=== PATIENT | female | born 1935 | race Caucasian/White ===

== ENCOUNTER 2021-04-07 10:13 | Emergency (ER) | payer MEDICARE, OTHER ==
[2021-04-07] MEDS ORDERED: Sodium Chloride 0.9% 10 ML Syringe FLUSH PRN (10:49)
[2021-04-07] MEDS ORDERED: Ondansetron 4 MG/2 ML SDV IVPUSH ONE (10:49)
--- NOTE | 2021-04-07 11:33 | CR ---
Chest: Portable view of the chest was obtained. Comparison: No prior chest imaging is available. Heart size is prominent but is accentuated from portable technique. Possible density is seen within the left lung base which may represent thick area of atelectasis. Lungs otherwise are clear. Old left-sided rib fractures are noted which appear healed. Slight scoliosis noted within the spine. Bony structures are osteopenic. Impression: 1. Thick density within the left base possibly due to thick area of atelectasis. Chest CT could be obtained to confirm this finding if clinically needed. 2. Other findings as described above. Nothing acute is otherwise seen. Diagnostic code #3
--- NOTE | 2021-04-07 12:18 | EDM.PDOC ---
ED HPI GENERAL MEDICAL PROBLEM - General Chief Complaint: Cardiovascular Problem Stated Complaint: BP LOW 180/86 Time Seen by Provider: 04/07/21 10:31 Source of Information: Reports: Patient History Limitations: Reports: No Limitations - History of Present Illness INITIAL COMMENTS - FREE TEXT/NARRATIVE: 85-year-old female presents the emergency department with complaints of "not feeling well". She states she has been treated for H. pylori infection and is on day 3 of her antibiotics. She states that this morning she took her regular blood pressure meds and waited approximately 30 minutes and then took her antibiotics. She states that she started to feel slightly nauseated and ate one half of a banana after taking her antibiotics and then elected to take her blood pressure and noted it was 180 systolic. She states at that time she also had a headache associated with the high blood pressure. Patient did call her primary care provider's office and was instructed to come to the emergency department. Patient does have a history of hypertension. She denies history of RI or stroke. Her primary care provider is Dr. Vega. - Related Data Allergies Allergy/AdvReac Type Severity Reaction Status Date / Time No Known Allergies Allergy Verified 04/07/21 10:43 Home Meds: Home Meds Amoxicillin 500 mg PO 04/07/21 [History] Aspirin [Aspirin EC] 04/07/21 [History] Cholecalciferol (Vitamin D3) [Vitamin D] 04/07/21 [History] Clarithromycin 500 mg PO 04/07/21 [History] Levothyroxine 75 mcg PO ACBREAKFAST 04/07/21 [History] Losartan [Cozaar] 04/07/21 [History] Magnesium 04/07/21 [History] Metoclopramide [Reglan] 5 mg PO Q6H PRN #20 tab 04/07/21 [Rx] Metoprolol Succinate [Toprol XL] 04/07/21 [History] Multivit with Minerals/Lutein [A Thru Z Advanced Formula Tab] 04/07/21 [History] Pantoprazole [ProTONIX] 40 mg PO DAILY 04/07/21 [History] Potassium Gluconate [Potassium] 04/07/21 [History] Rosuvastatin [Crestor] 04/07/21 [History] Sucralfate 04/07/21 [History] amLODIPine [Norvasc] 04/07/21 [History] metFORMIN [Glucophage] 04/07/21 [History] Past Medical History Cardiovascular History: Reports: High Cholesterol, Hypertension Social & Family History - Tobacco Use Tobacco Use Status *Q: Unknown Ever Used Tobacco ED ROS GENERAL - Review of Systems Review Of Systems: Comprehensive ROS is negative, except as noted in HPI. ED EXAM, GENERAL - Physical Exam Exam: See Below Exam Limited By: No Limitations General Appearance: Alert, WD/WN, No Apparent Distress Ears: Normal External Exam, Hearing Grossly Normal Nose: Normal Inspection Throat/Mouth: Normal Inspection, Normal Lips, Normal Voice, No Airway Compromise Head: Atraumatic, Normocephalic Neck: Normal Inspection, Supple Respiratory/Chest: No Respiratory Distress, Lungs Clear, Normal Breath Sounds, No Accessory Muscle Use, Chest Non-Tender Cardiovascular: Normal Peripheral Pulses, Regular Rate, Rhythm, No Edema, No Murmur Peripheral Pulses: 2+: Radial (L), Radial (R) GI/Abdominal: Normal Bowel Sounds, Soft, Non-Tender, No Distention (Female) Exam: Deferred Rectal (Female) Exam: Deferred Back Exam: Normal Inspection Extremities: Normal Inspection, Normal Range of Motion, Non-Tender, No Pedal Edema, Normal Capillary Refill Neurological: Alert, Oriented, Normal Cognition Psychiatric: Normal Affect, Normal Mood Skin Exam: Warm, Dry, Intact, Normal Color, No Rash Lymphatic: No Adenopathy Course - Vital Signs Text/Narrative:: As stated above, patient presents with nausea, headache and hypertensive episode after taking her antibiotics to treat H. pylori. She states she is on day 3 of her medication course. Physical exam is essentially unremarkable. And she is hemodynamically stable at the time of my exam. Will obtain a full cardiac work- up to include labs, chest x-ray and an EKG. We will also medicate the patient with some Zofran. Suspect patient's nausea is due to her clarithromycin that she has been taking. Last Recorded V/S: Last Vital Signs Temp 98.4 F 04/07/21 10:28 Pulse 80 04/07/21 10:28 Resp 18 04/07/21 10:28 BP 164/83 H 04/07/21 10:28 Pulse Ox 100 04/07/21 10:28 - Orders/Labs/Meds Orders: Active Orders 24 hr Category Date Time Status Sodium Chloride 0.9% [Saline Flush] Med 04/07/21 10:49 Active 10 ml FLUSH ASDIRECTED PRN Saline Lock Insert [OM.PC] Stat Oth 04/07/21 10:49 Ordered Medication Orders Sodium Chloride (Sodium Chloride 0.9% 10 Ml Syringe) 10 ml FLUSH ASDIRECTED PRN PRN Reason: Keep Vein Open Last Admin: 04/07/21 11:10 Dose: 10 ml Documented by: IVIS Labs: Laboratory Tests 04/07/21 04/07/21 Range/Units 11:14 11:14 WBC 5.75 (3.98-10.04) K/mm3 RBC 4.01 (3.98-5.22) M/mm3 Hgb 10.8 L (11.2-15.7) gm/dl Hct 34.6 (34.1-44.9) % MCV 86.3 (79.4-94.8) fl MCH 26.9 (25.6-32.2) pg MCHC 31.2 L (32.2-35.5) g/dl RDW Std Deviation 48.7 H (36.4-46.3) fL Plt Count 427 H (182-369) K/mm3 MPV 9.4 (9.4-12.3) fl Neut % (Auto) 57.2 (34.0-71.1) % Lymph % (Auto) 30.3 (19.3-51.7) % Mcintosh % (Auto) 9.0 (4.7-12.5) % Eos % (Auto) 2.3 (0.7-5.8) Baso % (Auto) 1.0 (0.1-1.2) % Neut # (Auto) 3.29 (1.56-6.13) K/mm3 Lymph # (Auto) 1.74 (1.18-3.74) K/mm3 Mcintosh # (Auto) 0.52 H (0.24-0.36) K/mm3 Eos # (Auto) 0.13 (0.04-0.36) K/mm3 Baso # (Auto) 0.06 (0.01-0.08) K/mm3 Sodium 144 (136-145) mEq/L Potassium 4.5 (3.5-5.1) mEq/L Chloride 109 H (98-107) mEq/L Carbon Dioxide 21 (21-32) mEq/L Anion Gap 18.5 H (5-15) BUN 14 (7-18) mg/dL Creatinine 1.1 H (0.55-1.02) mg/dL Est Cr Clr Drug Dosing 27.35 mL/min Estimated GFR (MDRD) 47 (>60) mL/min BUN/Creatinine Ratio 12.7 L (14-18) Glucose 92 (70-99) mg/dL Calcium 8.0 L (8.5-10.1) mg/dL Magnesium 1.4 L (1.8-2.4) mg/dL Total Bilirubin 0.5 (0.2-1.0) mg/dL AST 23 (15-37) U/L ALT 20 (14-59) U/L Alkaline Phosphatase 57 (46-116) U/L Troponin I < 0.017 (0.00-0.056) ng/mL C-Reactive Protein <0.2 (<1.0) mg/dL Total Protein 6.0 L (6.4-8.2) g/dl Albumin 3.0 L (3.4-5.0) g/dl Globulin 3.0 gm/dL Albumin/Globulin Ratio 1.0 (1-2) Meds: Medications Generic Name Dose Route Start Last Admin Trade Name Charles PRN Reason Stop Dose Admin Sodium Chloride 10 ml 04/07/21 10:49 04/07/21 11:10 Sodium Chloride 0.9% 10 Ml Syringe FLUSH 10 ml ASDIRECTED PRN Administration Keep Vein Open Discontinued Medications Generic Name Dose Route Start Last Admin Trade Name Charles PRN Reason Stop Dose Admin Ondansetron HCl 4 mg 04/07/21 10:49 04/07/21 11:10 Ondansetron 4 Mg/2 Ml Sdv IVPUSH 04/07/21 10:50 4 mg ONETIME ONE Administration - Re-Assessments/Exams Free Text/Narrative Re-Assessment/Exam: 04/07/21 12:28 Hematology reveals a WBC of 5.75, hemoglobin 10.8, hematocrit 34.6, platelet count 427 Chemistry reveals a sodium of 144, potassium 4.5, chloride 109, carbon dioxide 21, anion gap 18.5, BUN 14, creatinine 1.1, glucose 92, calcium 8.0, magnesium 1.4, troponin less than 0.017, C-reactive protein 0.2 Patient states that she is feeling much better after receiving the Zofran. She will be discharged to home with a prescription for Zofran. Departure - Departure Time of Disposition: 12:36 Disposition: Home, Self-Care 01 Condition: Good Clinical Impression: Nausea Prescriptions: Metoclopramide [Reglan] 5 mg PO Q6H PRN #20 tab PRN Reason: Nausea Instructions: Nausea, Adult, [id number] Referrals: Talib Bales MD [Primary Care Provider] - Josseline Atwood NP [Nurse Practitioner] - Forms: ED Department Discharge Additional Instructions: You were seen in the emergency department today with complaints of nausea and high blood pressure and not feeling well. Full cardiac work-up was completed to include chest x-ray, EKG and lab studies. EKG and chest x-ray were essentially unremarkable. Lab studies did show that you are slightly dehydrated so recommend drinking more fluids throughout the day. Suspect the cause of your nausea is likely due to the antibiotic clarithromycin that you are taking to treat your H. pylori. Recommend taking all of your morning medications then waiting 1 hour. Take Reglan 1 tab swallowed whole and wait approximately 30 minutes then take your antibiotics with a light snack. Recommend that you follow-up with Josseline Atwood in approximately 1 week for reevaluation. Should your condition worsen or change, do not hesitate returning to the emergency department. Sepsis Event Note (ED) - Evaluation Sepsis Screening Result: No Definite Risk - Focused Exam Vital Signs: Vital Signs Temp Pulse Resp BP Pulse Ox 04/07/21 10:28 98.4 F 80 18 164/83 H 100 - My Orders Last 24 Hours: My Active Orders 04/07/21 10:49 Sodium Chloride 0.9% [Saline Flush] 10 ml FLUSH ASDIRECTED PRN Saline Lock Insert [OM.PC] Stat - Assessment/Plan Last 24 Hours: My Active Orders 04/07/21 10:49 Sodium Chloride 0.9% [Saline Flush] 10 ml FLUSH ASDIRECTED PRN Saline Lock Insert [OM.PC] Stat
--- NOTE | 2021-04-07 12:45 | PCM.EKG ---
#1 Interpretation EKG Date: 04/07/21 Time: 10:31 Rhythm: NSR Rate (Beats/Min): 75 [place]: Normal P-Wave: Present QRS: Normal ST-T: Normal QT: Normal EKG Interpretation Comments: Dr. Candelario interpretation: Sinus rhythm at 75 bpm; borderline left axis deviation; anterior infarct, age indeterminate
== END 2021-04-07 13:20 | disposition home or self-care (01) ==
LOC: JD.ED 10:13
DX: R11.0 Nausea (principal); R51.9 Headache, unspecified; E78.00 Pure hypercholesterolemia, unspecified; I10 Essential (primary) hypertension; Z79.82 Long term (current) use of aspirin; Z79.899 Other long term (current) drug therapy
CPT/HCPCS: 36415; 71045; 80053; 83735; 84484; 85025; 86140; 93005; 96374; 99284; J2405; 93010; 99285

== ENCOUNTER 2021-04-09 03:22 | Emergency (ER) | payer MEDICARE, OTHER ==
--- NOTE | 2021-04-09 04:22 | EDM.PDOC ---
ED HPI GENERAL MEDICAL PROBLEM - General Chief Complaint: Abdominal Pain Stated Complaint: STOMACH PAIN/BACK PAIN Time Seen by Provider: 04/09/21 03:28 Source of Information: Reports: Patient, Family (Daughter), Old Records (ED visit 04/07/2021) History Limitations: Reports: No Limitations - History of Present Illness INITIAL COMMENTS - FREE TEXT/NARRATIVE: Mrs. Adams is a very pleasant 85-year-old woman who now presents the ED stating that she has been experiencing needlelike pain in both of her shoulders, with a dry mouth, lightheadedness, and a "gut ache" ever since she started taking amoxicillin, clarithromycin, pantoprazole, and sucralfate, for treatment of H. pylori that was diagnosed by a stool test last week. She was seen in this ED 2 days ago, 04/07/2021, for similar symptoms. A work-up was unremarkable, and she felt much better after receiving IV Zofran. She was discharged home with a prescription for oral Zofran. No recent vomiting or daniel rrhea. The patient states that she has an appointment for consultation for EGD and colonoscopy on 04/28/2020. She has never previously undergone either. At triage, the patient's initial BP was found to be elevated at 171/90, with slight tachycardia of 102 bpm. She is afebrile, saturating 97% on room air. She appears to be somewhat anxious, although in no acute distress. The patient denies having a recent fever, chills, sore throat, ear pain, nasal or sinus congestion, cough, dyspnea, chest pain, palpitations, vomiting, constipation, diarrhea, urinary symptoms, recent weight gain or weight loss, recent bloody bowel movements or black bowel movements, recent joint aches, headaches, or rashes. The patient's PCP is Dr. Talib Vega. The Surgeon she was referred to is Dr. Ashutosh Guevara. She has received 2 COVID vaccinations plus to booster, as well as an influenza vaccination this season. Bilateral Shoulder Pain Score (Numeric/FACES): 6 Upper Abdomen Pain Score (Numeric/FACES): 6 - Related Data Allergies Allergy/AdvReac Type Severity Reaction Status Date / Time No Known Allergies Allergy Verified 04/09/21 03:35 Home Meds: Home Meds Amoxicillin 500 mg PO BID 04/07/21 [History] Aspirin [Aspirin EC] 81 mg PO DAILY 04/07/21 [History] Cholecalciferol (Vitamin D3) [Vitamin D] 5,000 unit PO DAILY 04/07/21 [History] Clarithromycin 500 mg PO BID 04/07/21 [History] Levothyroxine 75 mcg PO ACBREAKFAST 04/07/21 [History] Losartan [Cozaar] 50 mg PO DAILY 04/07/21 [History] Magnesium 200 mg PO DAILY 04/07/21 [History] Metoclopramide [Reglan] 5 mg PO Q6H PRN #20 tab 04/07/21 [Rx] Metoprolol Succinate [Toprol XL] 25 mg PO DAILY 04/07/21 [History] Multivit with Minerals/Lutein [A Thru Z Advanced Formula Tab] 1 tab PO DAILY 04/07/21 [History] Pantoprazole [ProTONIX] 40 mg PO DAILY 04/07/21 [History] Potassium Gluconate [Potassium] 99 mg PO DAILY 04/07/21 [History] Rosuvastatin [Crestor] 20 mg PO DAILY 04/07/21 [History] Sucralfate 1 gm PO QID 04/07/21 [History] amLODIPine [Norvasc] 2.5 mg PO DAILY 04/07/21 [History] metFORMIN [Glucophage] 500 mg PO DAILY 04/07/21 [History] Past Medical History Cardiovascular History: Reports: High Cholesterol, Hypertension Gastrointestinal History: Reports: GERD Endocrine/Metabolic History: Reports: Diabetes, Type II - Infectious Disease History Infectious Disease History: Reports: Helicobacter Pylori - Past Surgical History HEENT Surgical History: Reports: Cataract Surgery (bilateral), Oral Surgery (dental extractions) Female Surgical History: Reports: Hysterectomy (partial) Social & Family History - Tobacco Use Tobacco Use Status *Q: Former Tobacco User Years of Tobacco use: 24 Packs/Tins Daily: 1 Month/Year Tobacco Last Used: Quit around 1979 Tobacco Use Comment: Started smoking 1955 - Caffeine Use Caffeine Use: Reports: None - Alcohol Use Alcohol Use History: No - Recreational Drug Use Recreational Drug Use: No - Living Situation & Occupation Living situation: Reports: , Alone Occupation: Retired ED ROS GENERAL - Review of Systems Review Of Systems: Comprehensive ROS is negative, except as noted in HPI. ED EXAM, GI/ABD - Physical Exam Exam: See Below Exam Limited By: No Limitations General Appearance: Alert, No Apparent Distress, Thin Eyes: Bilateral: Normal Appearance, EOMI Ears: Normal External Exam, Hearing Grossly Normal Nose: Normal Inspection Throat/Mouth: Normal Inspection, Normal Lips, Normal Voice, No Airway Compromise Head: Atraumatic, Normocephalic Neck: Normal Inspection, Full Range of Motion Respiratory/Chest: No Respiratory Distress, Lungs Clear, Normal Breath Sounds, No Accessory Muscle Use Cardiovascular: Normal Peripheral Pulses, Regular Rate, Rhythm, No Edema, No Gallop, No JVD, No Murmur, No Rub GI/Abdominal Exam: Normal Bowel Sounds, Soft, Non-Tender (including the epigastrium), No Organomegaly, No Distention, No Abnormal Bruit, No Mass Back Exam: Normal Inspection, Full Range of Motion, NT Extremities: Normal Inspection, Normal Range of Motion, No Pedal Edema, Normal Capillary Refill Neurological: Alert, Oriented, Normal Cognition, No Motor/Sensory Deficits Psychiatric: Anxious Skin Exam: Warm, Dry, Intact, Normal Color, No Rash Course - Vital Signs Last Recorded V/S: Last Vital Signs Temp 36.6 C 04/09/21 03:39 Pulse 102 H 04/09/21 03:39 Resp 18 04/09/21 03:39 BP 171/90 H 04/09/21 03:39 Pulse Ox 97 04/09/21 03:39 - Re-Assessments/Exams Free Text/Narrative Re-Assessment/Exam: 04/09/21 04:17 The patient appears to be suffering from symptoms related to the clarithromycin that she is currently taking after testing positive for H. pylori on a stool test. She is currently scheduled for a consultation for an EGD and colonoscopy with Dr. Guevara on 04/28/2020. At this time, I am recommending that she discontinue both the clarithromycin and amoxicillin, but continue the pantoprazole and sucralfate. I would like her to contact the office of Dr. Guevara in the morning to see if she can meet with him earlier than 04/28/2020. The patient is aware that Dr. Guevara may very well decide that she needs to be on the antibiotics, anyway, in which case she would have to start over. Departure - Departure Time of Disposition: 04:21 Disposition: Home, Self-Care 01 Condition: Good Clinical Impression: Adverse effect of clarithromycin - Discharge Information *PRESCRIPTION DRUG MONITORING PROGRAM REVIEWED*: Not Applicable *COPY OF PRESCRIPTION DRUG MONITORING REPORT IN PATIENT ALLYN: Not Applicable Instructions: Abdominal Pain, Adult, [id number] Referrals: Talib Bales MD [Physician] - Ashutosh Guevara MD [Physician] - Forms: ED Department Discharge Additional Instructions: You were seen in the emergency room for a needlelike pain in both of your shoulders, and dry mouth, lightheadedness, and "gut ache" associated with clarithromycin that you were prescribed, along with amoxicillin, for treatment of H. pylori. As discussed, we are recommending that you discontinue both the clarithromycin and amoxicillin at this time, however, you are to continue to take the pantoprazole and sucralfate that you were also prescribed. We recommend that you contact the office of the surgeon Dr. Ashutosh Guevara in the morning, to see if you can move your consultation appointment earlier than 04/28/2020. If any other problems, please do not hesitate to return to the ER. Sepsis Event Note (ED) - Evaluation Sepsis Screening Result: No Definite Risk - Focused Exam Vital Signs: Vital Signs Temp Pulse Resp BP Pulse Ox 04/09/21 03:39 36.6 C 102 H 18 171/90 H 97
== END 2021-04-09 04:33 | disposition home or self-care (01) ==
LOC: JD.ED 03:22
DX: R42 Dizziness and giddiness (principal); T36.3X5A Adverse effect of macrolides, initial encounter; Z79.82 Long term (current) use of aspirin; Z79.84 Long term (current) use of oral hypoglycemic drugs; Z79.899 Other long term (current) drug therapy; Z87.891 Personal history of nicotine dependence
CPT/HCPCS: 99283

== ENCOUNTER 2021-04-20 03:53 | Emergency (ER) | payer MEDICARE, OTHER ==
[2021-04-20] MEDS ORDERED: Ondansetron 4 MG/2 ML SDV IVPUSH ONE (04:18)
[2021-04-20] MEDS ORDERED: Sodium Chloride 0.9% 10 ML Syringe FLUSH PRN (04:18)
[2021-04-20] MEDS ORDERED: Sodium Chloride 0.9% 1,000 ML IV SCH (04:30)
[2021-04-20] MEDS ORDERED: Pantoprazole 40 MG Vial IVPUSH ONE (05:44)
[2021-04-20] MEDS ORDERED: Magnesium Sulfate/Water 2 GM in Premix Bag 1 BAG IV ONE (05:44)
--- NOTE | 2021-04-20 05:46 | EDM.PDOC ---
ED HPI GENERAL MEDICAL PROBLEM - General Chief Complaint: Gastrointestinal Problem Stated Complaint: DIARHEA/BLOOD IN STOOLS Time Seen by Provider: 04/20/21 05:46 Source of Information: Reports: Patient History Limitations: Reports: No Limitations - History of Present Illness INITIAL COMMENTS - FREE TEXT/NARRATIVE: Patient is an 85-year-old female with no significant past medical history. Patient does have recent diagnosis of H. pylori. Patient is here with a chief complaint of diarrhea, feeling weak and blood in her stools. Patient states the diarrhea has been intermittent for the last 3 weeks. She reports recurrence of the diarrhea overnight. She did not have any associated vomiting. She does report some blood in her stool which has been present previously. She states she feels extremely weak and like she has no energy. She reports mid abdominal cramping without radiation. No focality of her abdominal discomfort. She was previously told that this was caused by antibiotics being to treat her H. pylori infection. She has subsequently stopped her antibiotics. However, her diarrhea seems to have returned. She is scheduled see surgery on Monday to have further evaluation and endoscopies performed. Bilateral Shoulder Pain Score (Numeric/FACES): 3 - Related Data Allergies Allergy/AdvReac Type Severity Reaction Status Date / Time No Known Allergies Allergy Verified 04/09/21 03:35 Home Meds: Home Meds Amoxicillin 500 mg PO BID 04/07/21 [History] Aspirin [Aspirin EC] 81 mg PO DAILY 04/07/21 [History] Cholecalciferol (Vitamin D3) [Vitamin D] 5,000 unit PO DAILY 04/07/21 [History] Clarithromycin 500 mg PO BID 04/07/21 [History] Levothyroxine 75 mcg PO ACBREAKFAST 04/07/21 [History] Losartan [Cozaar] 50 mg PO DAILY 04/07/21 [History] Magnesium 200 mg PO DAILY 04/07/21 [History] Metoclopramide [Reglan] 5 mg PO Q6H PRN #20 tab 04/07/21 [Rx] Metoprolol Succinate [Toprol XL] 25 mg PO DAILY 04/07/21 [History] Multivit with Minerals/Lutein [A Thru Z Advanced Formula Tab] 1 tab PO DAILY 04/07/21 [History] Pantoprazole [ProTONIX] 40 mg PO DAILY 04/07/21 [History] Potassium Gluconate [Potassium] 99 mg PO DAILY 04/07/21 [History] Rosuvastatin [Crestor] 20 mg PO DAILY 04/07/21 [History] Sucralfate 1 gm PO QID 04/07/21 [History] amLODIPine [Norvasc] 2.5 mg PO DAILY 04/07/21 [History] metFORMIN [Glucophage] 500 mg PO DAILY 04/07/21 [History] Past Medical History Cardiovascular History: Reports: High Cholesterol, Hypertension Gastrointestinal History: Reports: GERD, Helicobacter Pylori Musculoskeletal History: Reports: Arthritis, Back Pain, Chronic, Osteoporosis Endocrine/Metabolic History: Reports: Diabetes, Type II - Infectious Disease History Infectious Disease History: Reports: Helicobacter Pylori - Past Surgical History HEENT Surgical History: Reports: Cataract Surgery, Oral Surgery Female Surgical History: Reports: Hysterectomy Social & Family History - Tobacco Use Tobacco Use Status *Q: Never Tobacco User - Caffeine Use Caffeine Use: Reports: None - Recreational Drug Use Recreational Drug Use: No - Living Situation & Occupation Living situation: Reports: , Alone Occupation: Retired ED ROS GENERAL - Review of Systems Review Of Systems: See Below Free Text/Narrative/Comment: In addition to that documented in the HPI above, the additional ROS was obtained: Constitutional: Denies fevers or chills Eyes: Denies vision changes ENMT: Denies sore throat CV: Denies chest pain Resp: Denies SOB GI: Per HPI : Denies painful urination MSK: Denies recent trauma Skin: Denies new rashes Neuro: Denies new numbness or tingling or weakness Endocrine: Denies unexpected weight loss Heme: Denies bleeding disorders ED EXAM, GI/ABD - Physical Exam Exam: See Below Text/Narrative:: I have reviewed the triage vital signs Const: Well nourished, well developed, appears stated age Eyes: Pupils Equal and reactive to light bilaterally, no conjunctival injection HENT: No signs of trauma or swelling, Neck supple without meningismus CV: Regular Rate Rhythm, Warm, well-perfused extremities RESP: Unlabored respiratory effort GI: soft, non-tender, non-distended, no masses MSK: No gross deformities appreciated Skin: Warm, dry. No rashes Neuro: Alert, collar band creaser II-XII grossly intact. Sensation and motor function of extremities grossly intact. Psych: Appropriate mood and affect. Course - Vital Signs Last Recorded V/S: Last Vital Signs Temp 36.8 C 04/20/21 04:10 Pulse 94 04/20/21 04:10 Resp 18 04/20/21 04:10 BP 166/83 H 04/20/21 04:10 Pulse Ox 96 04/20/21 04:10 - Orders/Labs/Meds Orders: Active Orders 24 hr Category Date Time Status Communication Order [RC] ASDIRECTED Care 04/20/21 04:19 Active Communication Order [RC] ASDIRECTED Care 04/20/21 04:19 Active Communication Order [RC] ASDIRECTED Care 04/20/21 04:19 Active Communication Order [RC] ASDIRECTED Care 04/20/21 04:19 Active Orthostatic Vital Signs [RC] ASDIRECTED Care 04/20/21 04:19 Active Peripheral IV Care [RC] . DIRECTED Care 04/20/21 04:19 Active Magnesium Sulfate/Water [Magnesium Sulfate in Water 2 Med 04/20/21 05:44 Active GM/50 ML] 2 gm Premix Bag 1 bag IV ONETIME Potassium Chloride [KCl in Water 10 MEQ/100 ML] 10 meq Med 04/20/21 05:45 Active Premix Bag 1 bag IV Q1H Sodium Chloride 0.9% [Saline Flush] Med 04/20/21 04:18 Active 10 ml FLUSH ASDIRECTED PRN Peripheral IV Insertion Adult [OM.PC] Stat Oth 04/20/21 04:19 Ordered Medication Orders Magnesium Sulfate 2 gm/ Premix 50 mls @ 25 mls/hr IV ONETIME ONE Stop: 04/20/21 07:43 Last Admin: 04/20/21 06:22 Dose: 25 mls/hr Documented by: DARSHAN Potassium Chloride 10 meq/ (Premix) 100 mls @ 100 mls/hr IV Q1H ELIAS Stop: 04/20/21 07:44 Last Admin: 04/20/21 06:22 Dose: 100 mls/hr Documented by: LAURELEBRI Sodium Chloride (Sodium Chloride 0.9% 10 Ml Syringe) 10 ml FLUSH ASDIRECTED PRN PRN Reason: Keep Vein Open Labs: Laboratory Tests 04/20/21 04/20/21 Range/Units 04:30 04:30 WBC 5.67 (3.98-10.04) K/mm3 RBC 4.37 (3.98-5.22) M/mm3 Hgb 11.6 (11.2-15.7) gm/dl Hct 36.5 (34.1-44.9) % MCV 83.5 (79.4-94.8) fl MCH 26.5 (25.6-32.2) pg MCHC 31.8 L (32.2-35.5) g/dl RDW Std Deviation 46.5 H (36.4-46.3) fL Plt Count 376 H (182-369) K/mm3 MPV 9.4 (9.4-12.3) fl Neut % (Auto) 43.1 (34.0-71.1) % Lymph % (Auto) 37.6 (19.3-51.7) % Kern % (Auto) 14.5 H (4.7-12.5) % Eos % (Auto) 3.0 (0.7-5.8) Baso % (Auto) 1.6 H (0.1-1.2) % Neut # (Auto) 2.45 (1.56-6.13) K/mm3 Lymph # (Auto) 2.13 (1.18-3.74) K/mm3 Kern # (Auto) 0.82 H (0.24-0.36) K/mm3 Eos # (Auto) 0.17 (0.04-0.36) K/mm3 Baso # (Auto) 0.09 H (0.01-0.08) K/mm3 Sodium 142 (136-145) mEq/L Potassium 2.8 L D (3.5-5.1) mEq/L Chloride 104 (98-107) mEq/L Carbon Dioxide 24 (21-32) mEq/L Anion Gap 16.8 H (5-15) BUN 12 (7-18) mg/dL Creatinine 1.0 (0.55-1.02) mg/dL Est Cr Clr Drug Dosing 30.08 mL/min Estimated GFR (MDRD) 53 (>60) mL/min BUN/Creatinine Ratio 12.0 L (14-18) Glucose 94 (70-99) mg/dL Calcium 8.4 L (8.5-10.1) mg/dL Magnesium 1.3 L (1.8-2.4) mg/dL Total Bilirubin 0.5 (0.2-1.0) mg/dL AST 17 (15-37) U/L ALT 18 (14-59) U/L Alkaline Phosphatase 55 (46-116) U/L C-Reactive Protein < 0.2 (<1.0) mg/dL Total Protein 6.4 (6.4-8.2) g/dl Albumin 3.3 L (3.4-5.0) g/dl Globulin 3.1 gm/dL Albumin/Globulin Ratio 1.1 (1-2) Lipase 131 (73-393) U/L Meds: Medications Generic Name Dose Route Start Last Admin Trade Name Freq PRN Reason Stop Dose Admin Magnesium Sulfate 2 gm/ Premix 50 mls @ 25 mls/hr 04/20/21 05:44 04/20/21 06:22 IV 04/20/21 07:43 25 mls/hr ONETIME ONE Administration Potassium Chloride 10 meq/ 100 mls @ 100 mls/hr 04/20/21 05:45 04/20/21 06:22 Premix IV 04/20/21 07:44 100 mls/hr Q1H ELIAS Administration Sodium Chloride 10 ml 04/20/21 04:18 Sodium Chloride 0.9% 10 Ml Syringe FLUSH ASDIRECTED PRN Keep Vein Open Discontinued Medications Generic Name Dose Route Start Last Admin Trade Name Freq PRN Reason Stop Dose Admin Sodium Chloride 1,000 mls @ 999 mls/hr 04/20/21 04:30 04/20/21 05:18 Normal Saline IV 04/20/21 05:29 999 mls/hr Q1H ELIAS Administration Ondansetron HCl 4 mg 04/20/21 04:18 04/20/21 05:18 Ondansetron 4 Mg/2 Ml Sdv IVPUSH 04/20/21 04:19 4 mg ONETIME ONE Administration Pantoprazole Sodium 40 mg 04/20/21 05:44 04/20/21 06:19 Pantoprazole 40 Mg Vial IVPUSH 04/20/21 05:45 40 mg ONETIME ONE Administration Departure - Departure Time of Disposition: 07:12 Disposition: Home, Self-Care 01 Clinical Impression: Diarrhea, Hypomagnesemia, Hypokalemia - Discharge Information Referrals: Talib Bales MD [Primary Care Provider] - Forms: ED Department Discharge Sepsis Event Note (ED) - Evaluation Sepsis Screening Result: No Definite Risk - Focused Exam Vital Signs: Vital Signs Temp Pulse Resp BP Pulse Ox 04/20/21 04:10 36.8 C 94 18 166/83 H 96 - My Orders Last 24 Hours: My Active Orders 04/20/21 04:18 Sodium Chloride 0.9% [Saline Flush] 10 ml FLUSH ASDIRECTED PRN 04/20/21 04:19 Communication Order [RC] ASDIRECTED Communication Order [RC] ASDIRECTED Communication Order [RC] ASDIRECTED Communication Order [RC] ASDIRECTED Orthostatic Vital Signs [RC] ASDIRECTED Peripheral IV Care [RC] . DIRECTED Peripheral IV Insertion Adult [OM.PC] Stat 04/20/21 05:44 Magnesium Sulfate/Water [Magnesium Sulfate in Water 2 GM/50 ML] 2 gm Premix Bag 1 bag IV ONETIME 04/20/21 05:45 Potassium Chloride [KCl in Water 10 MEQ/100 ML] 10 meq Premix Bag 1 bag IV Q1H - Assessment/Plan Last 24 Hours: My Active Orders 04/20/21 04:18 Sodium Chloride 0.9% [Saline Flush] 10 ml FLUSH ASDIRECTED PRN 04/20/21 04:19 Communication Order [RC] ASDIRECTED Communication Order [RC] ASDIRECTED Communication Order [RC] ASDIRECTED Communication Order [RC] ASDIRECTED Orthostatic Vital Signs [RC] ASDIRECTED Peripheral IV Care [RC] . DIRECTED Peripheral IV Insertion Adult [OM.PC] Stat 04/20/21 05:44 Magnesium Sulfate/Water [Magnesium Sulfate in Water 2 GM/50 ML] 2 gm Premix Bag 1 bag IV ONETIME 04/20/21 05:45 Potassium Chloride [KCl in Water 10 MEQ/100 ML] 10 meq Premix Bag 1 bag IV Q1H Assessment:: Patient is an 85-year-old female presenting with chronic diarrhea. No significant evidence of abdominal pathology requiring emergent imaging. No evidence of diverticulitis. Normal white blood cell count. No drop in hemoglobin. Laboratory studies demonstrate significant hypomagnesemia and hypokalemia. These were repleted in the emergency room. Patient will be instructed to follow-up with general surgery as an outpatient for further evaluation and management. Return precautions given as usual. Patient agrees with plan of care.
[2021-04-20] MEDS: Potassium Chloride 10 MEQ in Premix Bag 1 BAG IV SCH ×2 (06:22→07:35)
== END 2021-04-20 09:12 | disposition home or self-care (01) ==
LOC: JD.ED 03:53
DX: E83.42 Hypomagnesemia (principal); E87.6 Hypokalemia; R19.7 Diarrhea, unspecified; I10 Essential (primary) hypertension; E78.00 Pure hypercholesterolemia, unspecified; K21.9 Gastro-esophageal reflux disease without esophagitis; E11.9 Type 2 diabetes mellitus without complications; Z79.899 Other long term (current) drug therapy; Z79.84 Long term (current) use of oral hypoglycemic drugs; Z79.82 Long term (current) use of aspirin
CPT/HCPCS: 36415; 80053; 83690; 83735; 85025; 86140; 96365; 96366; 96368; 96375; 99284; C9113; J2405; J3475; J3480; J7030

== ENCOUNTER 2021-05-04 23:16 | Emergency (ER) | payer MEDICARE, OTHER ==
[2021-05-05] MEDS ORDERED: HYDROmorphone 1 MG/ML Syringe IVPUSH STA (00:07)
[2021-05-05] MEDS ORDERED: Ondansetron 4 MG/2 ML SDV IVPUSH ONE ×2 (00:07→01:42)
[2021-05-05] MEDS ORDERED: Sodium Chloride 0.9% 1,000 ML IV SCH (00:15)
[2021-05-05] MEDS ORDERED: Ondansetron 4 MG/2 ML SDV ONE (01:41)
== END 2021-05-05 03:35 | disposition home or self-care (01) ==
LOC: JD.ED 23:16
DX: R10.13 Epigastric pain (principal); Z01.812 Encounter for preprocedural laboratory examination; R11.0 Nausea; K56.1 Intussusception; R19.09 Other intra-abdominal and pelvic swelling, mass and lump; E87.6 Hypokalemia; E83.42 Hypomagnesemia; A04.9 Bacterial intestinal infection, unspecified; M81.0 Age-related osteoporosis without current pathological fracture; E55.9 Vitamin D deficiency, unspecified; N18.31 Chronic kidney disease, stage 3a; Z20.822 Contact with and (suspected) exposure to COVID-19
CPT/HCPCS: 36415; 74177; 80048; 80053; 82306; 83013; 83690; 83735; 85007; 85027; 96374; 96375; 96376; 99284; J1170; J2405; J7030; U0002

== ENCOUNTER 2021-05-06 08:49 | Inpatient (IN) | payer MEDICARE, OTHER ==
[~2021-05-06 08:49] MED LIST: Lactated Ringers 1,000 ML IV SCH; Lidocaine 1%/Sod Bicarbonate in NS 8.4% 1 ML Syringe IDERM PRN
[2021-05-06] MEDS ORDERED: Bupivacaine 0.5% 30 ML SDV ONE (09:35)
[2021-05-06] MEDS ORDERED: Lidocaine 0.5% 50 ML SDV ONE (09:47)
[2021-05-06] MEDS ORDERED: Rocuronium 50 MG/5 ML Vial ONE ×2 (09:47→11:11)
[2021-05-06] MEDS ORDERED: fentaNYL 100 MCG/2 ML SDV ONE ×2 (09:48→11:42)
[2021-05-06] MEDS ORDERED: Propofol 200 MG/20 ML SDV ONE (09:48)
[2021-05-06] MEDS ORDERED: cefOXitin 2 GM in Premix Bag 1 BAG IV ONE (11:00)
[2021-05-06] MEDS ORDERED: Heparin Sodium 5,000 Units/ML Vial SUBCUT ONE (11:30)
[2021-05-06] MEDS ORDERED: fentaNYL 100 MCG/2 ML SDV IVPUSH PRN (12:03)
[2021-05-06] MEDS ORDERED: Ondansetron 4 MG/2 ML SDV IVPUSH PRN ×2 (12:03→13:30)
[2021-05-06] MEDS ORDERED: HYDROmorphone 0.5 MG/0.5 ML Syringe IVPUSH PRN (12:03)
[2021-05-06] MEDS ORDERED: Ondansetron 4 MG/2 ML SDV ONE (12:08)
[2021-05-06] MEDS ORDERED: Dexamethasone 4 MG/ML 5 ML MDV ONE (12:47)
[2021-05-06] MEDS ORDERED: Morphine 2 MG/ML SYRINGE IVPUSH PRN (13:10)
[2021-05-06] MEDS ORDERED: Ondansetron 4 MG in Sodium Chloride 0.9% 50 ML IV PRN (13:20)
[2021-05-06] MEDS ORDERED: diphenhydrAMINE 12.5 MG/5 ML Liquid 5 ML UD Cup PO PRN (13:21)
[2021-05-06] MEDS: Sodium Chloride 0.9% 10 ML Syringe FLUSH SCH ×2 (15:20→20:42)
[2021-05-06] MEDS: Acetaminophen 325 MG Tab PO SCH ×2 (15:33→20:40)
[2021-05-06] MEDS: Lactated Ringers 1,000 ML IV SCH (15:36)
[2021-05-06] MEDS: oxyCODONE 5 MG Tab PO PRN (18:47)
[2021-05-06] MEDS ORDERED: Heparin Sodium 5,000 Units/ML Vial SUBCUT SCH (19:00)
[2021-05-06] MEDS: Potassium Chloride 10 MEQ Tab.ER PO SCH (20:41)
[2021-05-06] MEDS: Magnesium Oxide 400 MG Tab PO SCH (20:41)
[2021-05-06] MEDS: Heparin Sodium 5,000 Units/ML Vial SUBCUT SCH (20:41)
[2021-05-06] MEDS: Pantoprazole 40 MG Tab.CR PO SCH (20:41)
[2021-05-06] MEDS ORDERED: Insulin Lispro 100 Unit/ML 3 ML KwikPen SUBCUT ONE (21:10)
[2021-05-07] MEDS: oxyCODONE 5 MG Tab PO PRN (00:11)
[2021-05-07] MEDS: Acetaminophen 325 MG Tab PO SCH ×3 (05:05→21:59)
[2021-05-07] MEDS: Heparin Sodium 5,000 Units/ML Vial SUBCUT SCH ×3 (05:05→22:05)
[2021-05-07] MEDS: Lactated Ringers 1,000 ML IV SCH (05:13)
[2021-05-07] MEDS: Levothyroxine 75 MCG Tab PO SCH (06:55)
[2021-05-07] MEDS ORDERED: Magnesium Sulfate/Water 2 GM in Premix Bag 1 BAG IV ONE (07:36)
[2021-05-07] MEDS: Magnesium Oxide 400 MG Tab PO SCH ×2 (08:24→22:03)
[2021-05-07] MEDS: Rosuvastatin 10 MG Tab PO SCH (08:24)
[2021-05-07] MEDS: Potassium Chloride 10 MEQ Tab.ER PO SCH ×2 (08:24→22:03)
[2021-05-07] MEDS: Pantoprazole 40 MG Tab.CR PO SCH ×2 (08:25→22:35)
[2021-05-07] MEDS: Metoprolol Succinate 25 MG Tab.ER PO SCH (08:26)
[2021-05-07] MEDS: amLODIPine 5 MG Tab PO SCH (08:26)
[2021-05-07] MEDS: Insulin Lispro 100 Unit/ML 3 ML KwikPen SUBCUT SCH ×3 (12:38→22:36)
[2021-05-07] MEDS ORDERED: Lactated Ringers 500 ML IV ONE (17:00)
[2021-05-08] MEDS: Levothyroxine 75 MCG Tab PO SCH ×2 (04:31→05:41)
[2021-05-08] MEDS: Acetaminophen 325 MG Tab PO SCH ×3 (04:31→21:04)
[2021-05-08] MEDS: Heparin Sodium 5,000 Units/ML Vial SUBCUT SCH ×3 (04:31→21:07)
[2021-05-08] MEDS ORDERED: ALPRAZolam 0.5 MG Tab PO PRN (08:18)
[2021-05-08] MEDS ORDERED: Ferrous Sulfate 324 MG Tab.EC PO SCH (09:00)
[2021-05-08] MEDS: Insulin Lispro 100 Unit/ML 3 ML KwikPen SUBCUT SCH ×4 (09:13→21:07)
[2021-05-08] MEDS: Calcium Carbonate 600 MG Tab PO SCH ×2 (09:14→21:04)
[2021-05-08] MEDS: Magnesium Oxide 400 MG Tab PO SCH ×2 (09:15→21:05)
[2021-05-08] MEDS: Cholecalciferol (Vitamin D3) 5,000 UNIT Tab PO SCH (09:18)
[2021-05-08] MEDS: Ferrous Sulfate 324 MG Tab.EC PO SCH ×2 (09:19→17:22)
[2021-05-08] MEDS: Rosuvastatin 10 MG Tab PO SCH (09:19)
[2021-05-08] MEDS: Pantoprazole 40 MG Tab.CR PO SCH ×2 (09:19→21:05)
[2021-05-08] MEDS: Losartan 100 MG Tab PO SCH (09:20)
[2021-05-08] MEDS: Potassium Chloride 10 MEQ Tab.ER PO SCH ×2 (09:20→21:05)
[2021-05-08] MEDS: amLODIPine 5 MG Tab PO SCH (09:21)
[2021-05-08] MEDS: Metoprolol Succinate 25 MG Tab.ER PO SCH (09:22)
[2021-05-09] MEDS: Heparin Sodium 5,000 Units/ML Vial SUBCUT SCH ×3 (04:42→21:18)
[2021-05-09] MEDS: Acetaminophen 325 MG Tab PO SCH ×3 (04:42→21:14)
[2021-05-09] MEDS: Levothyroxine 75 MCG Tab PO SCH ×2 (04:43→06:32)
[2021-05-09] MEDS: Insulin Lispro 100 Unit/ML 3 ML KwikPen SUBCUT SCH ×3 (07:30→21:19)
[2021-05-09] MEDS: Calcium Carbonate 600 MG Tab PO SCH ×2 (09:52→21:15)
[2021-05-09] MEDS: Magnesium Oxide 400 MG Tab PO SCH ×2 (09:52→21:15)
[2021-05-09] MEDS: Ferrous Sulfate 324 MG Tab.EC PO SCH ×2 (09:52→17:03)
[2021-05-09] MEDS: Cholecalciferol (Vitamin D3) 5,000 UNIT Tab PO SCH (09:53)
[2021-05-09] MEDS: Losartan 100 MG Tab PO SCH (09:53)
[2021-05-09] MEDS: amLODIPine 5 MG Tab PO SCH (09:53)
[2021-05-09] MEDS: Rosuvastatin 10 MG Tab PO SCH (09:53)
[2021-05-09] MEDS: Potassium Chloride 10 MEQ Tab.ER PO SCH ×2 (09:53→21:17)
[2021-05-09] MEDS: Pantoprazole 40 MG Tab.CR PO SCH ×2 (09:54→21:15)
[2021-05-09] MEDS: Metoprolol Succinate 25 MG Tab.ER PO SCH (09:54)
[2021-05-10] MEDS: Acetaminophen 325 MG Tab PO SCH ×3 (06:02→20:30)
[2021-05-10] MEDS: Levothyroxine 75 MCG Tab PO SCH (06:04)
[2021-05-10] MEDS: Heparin Sodium 5,000 Units/ML Vial SUBCUT SCH ×3 (06:04→20:30)
[2021-05-10] MEDS: Insulin Lispro 100 Unit/ML 3 ML KwikPen SUBCUT SCH ×4 (07:47→20:31)
[2021-05-10] MEDS: Potassium Chloride 10 MEQ Tab.ER PO SCH ×2 (08:42→20:30)
[2021-05-10] MEDS: Metoprolol Succinate 25 MG Tab.ER PO SCH (08:43)
[2021-05-10] MEDS: Magnesium Oxide 400 MG Tab PO SCH ×2 (08:43→20:29)
[2021-05-10] MEDS: Ferrous Sulfate 324 MG Tab.EC PO SCH ×2 (08:43→17:29)
[2021-05-10] MEDS: Rosuvastatin 10 MG Tab PO SCH (08:43)
[2021-05-10] MEDS: Losartan 100 MG Tab PO SCH (08:43)
[2021-05-10] MEDS: Calcium Carbonate 600 MG Tab PO SCH ×2 (08:43→20:29)
[2021-05-10] MEDS: amLODIPine 5 MG Tab PO SCH (08:44)
[2021-05-10] MEDS: Pantoprazole 40 MG Tab.CR PO SCH ×2 (08:44→20:29)
[2021-05-10] MEDS: Cholecalciferol (Vitamin D3) 5,000 UNIT Tab PO SCH (08:44)
[2021-05-11] MEDS: Acetaminophen 325 MG Tab PO SCH ×2 (06:07→12:20)
[2021-05-11] MEDS: Levothyroxine 75 MCG Tab PO SCH (06:08)
[2021-05-11] MEDS: Heparin Sodium 5,000 Units/ML Vial SUBCUT SCH ×2 (06:08→14:32)
[2021-05-11] MEDS: Insulin Lispro 100 Unit/ML 3 ML KwikPen SUBCUT SCH ×2 (06:39→12:19)
[2021-05-11] MEDS: Magnesium Oxide 400 MG Tab PO SCH (09:39)
[2021-05-11] MEDS: Potassium Chloride 10 MEQ Tab.ER PO SCH (09:39)
[2021-05-11] MEDS: Cholecalciferol (Vitamin D3) 5,000 UNIT Tab PO SCH (09:39)
[2021-05-11] MEDS: Calcium Carbonate 600 MG Tab PO SCH (09:39)
[2021-05-11] MEDS: Pantoprazole 40 MG Tab.CR PO SCH (09:40)
[2021-05-11] MEDS: Ferrous Sulfate 324 MG Tab.EC PO SCH (09:41)
[2021-05-11] MEDS: Rosuvastatin 10 MG Tab PO SCH (09:41)
[2021-05-11] MEDS: Losartan 100 MG Tab PO SCH (09:42)
[2021-05-11] MEDS: amLODIPine 5 MG Tab PO SCH (09:43)
[2021-05-11] MEDS: Metoprolol Succinate 25 MG Tab.ER PO SCH (09:43)
== END 2021-05-11 13:10 | DRG 330 ==
LOC: JD.MS 08:49
PROVIDERS: ADMIT Surgery; ATTEND Surgery
PROC: 0DTF0ZZ Resection of Right Large Intestine, Open Approach (ICD-10-PCS; principal; 2021-05-06)
PROC: 0DB98ZX Excision of Duodenum, Via Natural or Artificial Opening Endoscopic, Diagnostic (ICD-10-PCS; 2021-05-06)
PROC: 0DB68ZX Excision of Stomach, Via Natural or Artificial Opening Endoscopic, Diagnostic (ICD-10-PCS; 2021-05-06)
PROC: 0DBE8ZX Excision of Large Intestine, Via Natural or Artificial Opening Endoscopic, Diagnostic (ICD-10-PCS; 2021-05-06)
DX: D49.0 Neoplasm of unspecified behavior of digestive system (principal); E44.1 Mild protein-calorie malnutrition; I10 Essential (primary) hypertension; K21.9 Gastro-esophageal reflux disease without esophagitis; F41.9 Anxiety disorder, unspecified; D64.9 Anemia, unspecified; E78.5 Hyperlipidemia, unspecified; M19.90 Unspecified osteoarthritis, unspecified site; M81.0 Age-related osteoporosis without current pathological fracture; E55.9 Vitamin D deficiency, unspecified; E11.9 Type 2 diabetes mellitus without complications; E03.9 Hypothyroidism, unspecified; R63.4 Abnormal weight loss; Z88.1 Allergy status to other antibiotic agents; Z79.82 Long term (current) use of aspirin; Z79.899 Other long term (current) drug therapy; Z90.710 Acquired absence of both cervix and uterus; Z79.84 Long term (current) use of oral hypoglycemic drugs; Z68.23 Body mass index [BMI] 23.0-23.9, adult; Z20.822 Contact with and (suspected) exposure to COVID-19
CPT/HCPCS: 00790; 36415; 51701; 51798; 80048; 82947; 83735; 84100; 85025; 88305; 88309; 88341; 88342; 97110-GP; 97116-GP; 97162-GP; 97530-GP; A9270-GY; J0694; J1100; J1170; J1644; J1815; J2370; J2405; J2704; J2710; J3010; J3475; J3490; J7120; U0002

== ENCOUNTER 2022-06-07 11:51 | Emergency (ER) | payer MEDICARE, OTHER ==
[2022-06-07] MEDS ORDERED: Sodium Chloride 0.9% 1,000 ML IV ONE (12:34)
[2022-06-07] MEDS ORDERED: Iopamidol 612 MG/ML 50 ML SDV IVPUSH ONE (13:07)
[2022-06-07] MEDS ORDERED: Iopamidol 612 MG/ML 100 ML Bottle IVPUSH ONE (13:07)
[2022-06-07] MEDS ORDERED: cefTRIAXone 2 GM in Sodium Chloride 0.9% 100 ML IV ONE (15:04)
[2022-06-07] MEDS ORDERED: Ondansetron 4 MG/2 ML SDV IVPUSH ONE (15:05)
== END 2022-06-07 16:00 | disposition home or self-care (01) ==
LOC: JD.ED 11:51
DX: N39.0 Urinary tract infection, site not specified (principal); E78.00 Pure hypercholesterolemia, unspecified; I12.9 Hypertensive chronic kidney disease with stage 1 through stage 4 chronic kidney disease, or unspecified chronic kidney disease; E11.22 Type 2 diabetes mellitus with diabetic chronic kidney disease; N18.30 Chronic kidney disease, stage 3 unspecified; K21.9 Gastro-esophageal reflux disease without esophagitis; M19.90 Unspecified osteoarthritis, unspecified site; E03.9 Hypothyroidism, unspecified; Z88.1 Allergy status to other antibiotic agents; Z79.01 Long term (current) use of anticoagulants; Z79.84 Long term (current) use of oral hypoglycemic drugs; Z79.899 Other long term (current) drug therapy
CPT/HCPCS: 36415; 71045; 71275; 80053; 81001; 83605; 83690; 84484; 85025; 85610; 87086; 93005; 96361; 96365; 96375; 99285; J0696; J2405; J7030; Q9967; 87088; 87186; 93010; 99284

== ENCOUNTER 2022-07-07 06:51 | Day surgery (SDC) | payer MEDICARE, OTHER ==
[~2022-07-07 06:51] MED LIST changes: +Sodium Chloride 0.9% 10 ML Syringe FLUSH PRN; +Sodium Chloride 0.9% 10 ML Syringe FLUSH SCH
[2022-07-07] MEDS ORDERED: Lidocaine 1% 2 ML ONE (07:15)
[2022-07-07] MEDS ORDERED: Midazolam 1 MG/ML 2 ML SDV ONE (07:16)
[2022-07-07] MEDS ORDERED: Propofol 200 MG/20 ML SDV ONE (07:16)
[2022-07-07] MEDS ORDERED: fentaNYL 100 MCG/2 ML SDV ONE (07:16)
== END 2022-07-07 09:24 | disposition home or self-care (01) ==
LOC: JD.SDS 06:51
PROVIDERS: ATTEND Surgery
DX: Z12.11 Encounter for screening for malignant neoplasm of colon (principal); K29.50 Unspecified chronic gastritis without bleeding; K44.9 Diaphragmatic hernia without obstruction or gangrene; K57.30 Diverticulosis of large intestine without perforation or abscess without bleeding; I48.91 Unspecified atrial fibrillation; F41.9 Anxiety disorder, unspecified; E11.22 Type 2 diabetes mellitus with diabetic chronic kidney disease; I12.9 Hypertensive chronic kidney disease with stage 1 through stage 4 chronic kidney disease, or unspecified chronic kidney disease; N18.31 Chronic kidney disease, stage 3a; K21.9 Gastro-esophageal reflux disease without esophagitis; M19.90 Unspecified osteoarthritis, unspecified site; E78.5 Hyperlipidemia, unspecified; E03.9 Hypothyroidism, unspecified; M81.0 Age-related osteoporosis without current pathological fracture; Z85.038 Personal history of other malignant neoplasm of large intestine; Z90.49 Acquired absence of other specified parts of digestive tract; Z98.0 Intestinal bypass and anastomosis status; Z88.1 Allergy status to other antibiotic agents; Z79.82 Long term (current) use of aspirin; Z79.84 Long term (current) use of oral hypoglycemic drugs; Z79.890 Hormone replacement therapy; Z79.899 Other long term (current) drug therapy; Z87.891 Personal history of nicotine dependence
CPT/HCPCS: 43239; 82947; G0105; J2250; J2704; J3010; J7120; 00813; J3490

== ENCOUNTER 2023-10-12 06:17 | Day surgery (SDC) | payer MEDICARE, OTHER ==
[~2023-10-12 06:17] MED LIST changes: -Lactated Ringers 1,000 ML IV SCH; -Lidocaine 1%/Sod Bicarbonate in NS 8.4% 1 ML Syringe IDERM PRN; +Propofol 200 MG/20 ML SDV ONE
[2023-10-12] MEDS: Lactated Ringers 1,000 ML IV SCH (06:25)
[2023-10-12] MEDS ORDERED: fentaNYL 100 MCG/2 ML SDV IVPUSH PRN (06:25)
[2023-10-12] MEDS ORDERED: HYDROmorphone 0.5 MG/0.5 ML Syringe IVPUSH PRN (06:25)
[2023-10-12] MEDS ORDERED: Ondansetron 4 MG/2 ML SDV IVPUSH PRN (06:25)
[2023-10-12] MEDS ORDERED: fentaNYL 100 MCG/2 ML SDV ONE (07:05)
== END 2023-10-12 08:05 | disposition home or self-care (01) ==
LOC: JD.SDS 06:17
PROVIDERS: ATTEND Surgery
DX: Z12.11 Encounter for screening for malignant neoplasm of colon (principal); Z85.038 Personal history of other malignant neoplasm of large intestine; I12.9 Hypertensive chronic kidney disease with stage 1 through stage 4 chronic kidney disease, or unspecified chronic kidney disease; N18.30 Chronic kidney disease, stage 3 unspecified; E11.22 Type 2 diabetes mellitus with diabetic chronic kidney disease; E03.9 Hypothyroidism, unspecified; K21.9 Gastro-esophageal reflux disease without esophagitis; F41.9 Anxiety disorder, unspecified; E78.00 Pure hypercholesterolemia, unspecified; Z79.82 Long term (current) use of aspirin; Z79.84 Long term (current) use of oral hypoglycemic drugs; Z79.890 Hormone replacement therapy; Z79.899 Other long term (current) drug therapy; Z88.1 Allergy status to other antibiotic agents
CPT/HCPCS: 36415; 43235; 82378; G0105; J2704; J3010; J7120